=== PATIENT | male | born 1995 | race Caucasian/White ===

== ENCOUNTER 2021-07-01 03:49 | Emergency (ER) | payer SELFPAY ==
[2021-07-01 03:51] VITALS: BP 162/103; PULSE 96; RESP 16; TEMP 36.6; O2SAT 100; BMI 20.2
--- NOTE | 2021-07-01 04:12 | RAD_ITS ---
STUDY: X-RAY - SACRUM/COCCYX REASON FOR EXAM: Male, 26 years old. pain TECHNIQUE: 3 view(s) of the sacrum and coccyx were obtained. COMPARISON: None. FINDINGS: Normal bilateral sacroiliac joints. Normal visualized sacral ala and fused sacral bodies. Normal sacrococcygeal junction with a normal angulation. Normal coccygeal segments. The presacral soft tissue structures are unremarkable. RAD/Sacrum-Coccyx min 2 Views IMPRESSION: Normal x-rays of the sacrum and coccyx. Electronically Signed: Keshav Aden MD at 5:14 EDT , Service support ,
--- NOTE | 2021-07-01 04:31 | EDS_ITS ---
HPI History of Present Illness Chief Complaint: Other, Pain/Inj Narrative Narrative: 26-year-old male presenting with pain in his sacrum and coccyx after jumping out of a dumpster and falling backwards onto his buttocks and sacrum. He states he did hit his head and might of lost consciousness but states he is not dizzy, lightheaded, nauseous. He has trouble walking due to pain in his sacral area. He does not have any numbness or tingling below the area of pain. No lacerations or abrasions. PFSH PFSH Home Medications NK 07/01/21 [History Last Taken Unknown] Allergy/AdvReac Type Severity Reaction Status Date / Time mushroom AdvReac Hives Verified 07/01/21 03:50 Social History Smoking Status: Current every day smoker tobacco type: cigarettes and e- cigarettes ROS ROS ED Constitutional Constitutional ED: Denies chills, fever(s) or sweats Eyes Eyes: Denies blurry vision or other ENT ENT ED: Denies rhinorrhea or sore throat Cardiovascular Cardiovascular: Denies chest pain or palpitations Respiratory/Chest Respiratory/Chest: Denies cough, dyspnea or sputum Gastrointestinal Gastrointestinal: Denies abdominal pain, nausea or vomiting Genitourinary Genitourinary ED: Denies dysuria or hematuria Musculoskeletal Musculoskeletal: Reports other Details: Coccygeal pain Integumentary Denies abscess or rash Neurologic Neurologic: Denies headache(s) or paresthesias EXAM Physical Exam Const Vital Signs: 07/01/21 03:51 Temperature 98 F Temperature Source Temporal Pulse Rate 96 Respiratory Rate 16 Blood Pressure 162/103 H Blood Pressure Mean 122 Pulse Ox 100 Oxygen Delivery Method Room Air Positive well nourished General Appearance ED: NAD HEENT atraumatic Eyes PERRL and EOMs intact bilaterally Back/Spine Back/Spine Narrative: Pain at the level of the coccyx without obvious deformity or swelling. No erythema or cellulitic change. Neuro oriented x3, CN's II-XII intact bilaterally, moves all extremities, no focal motor deficits and no sensory deficits noted Sensorium / Orientation: alert Psych mental status grossly normal and thought process normal Skin no rashes or lesions noted and no wounds MDM MDM MDM Narrative Medical decision making narrative: Patient presenting with sacral pain after falling from a dumpster. He states he hit his head and may have been knocked out although he does not have any dizziness, lightheadedness, nausea, confusion. His gait is somewhat altered but this is due to the sacral pain. Patient states he does not want anything stronger he is is a previous heroin addict. Patient was given ibuprofen and a Lidoderm topical patch. I did to him imaging of the sacrum and coccyx and on my interpretation it shows no acute fracture or subluxation. Patient counseled on findings. He is counseled to alternate Tylenol and ibuprofen and use ice at home. He is counseled that this pain may linger for a while and they should expect this. If he has new or worsening symptoms he should return. Impression: 1. Closed head injury 2. Sacral contusion Radiography Diagnostic Testing: Radiology Impression Sacrum and Coccyx X-Ray 07/01/21 04:12 IMPRESSION: Normal x-rays of the sacrum and coccyx. Electronically Signed: Keshav Aden MD at 5:14 EDT , Service support , Discharge Plan Triage Chief Complaint: Other, Pain/Inj ED Provider: Lyel Varela Dx/Rx/DC Orders Instructions: ED Coccyx or Sacrum Contusion Prescriptions: No Action NK RF: 0 Primary Care Provider: Care Physician,No Primary Referrals: Isaías Noyola MD [STAFF PHYSICIAN] - Care Physician,No Primary [Primary Care Provider] - Disposition Disposition: Home, Self Care
[2021-07-01] MEDS: Lidocaine 5% Patch 1 PATCH TOPICAL (04:40)
[2021-07-01] MEDS: Ibuprofen 600 MG Tablet PO (04:40)
== END 2021-07-01 06:00 | disposition home or self-care (01) ==
PROVIDERS: Emergency Provider Student in an Organized Health Care Education/Training Program
DX: S09.90XA Unspecified injury of head, initial encounter (principal); S30.0XXA Contusion of lower back and pelvis, initial encounter; F17.210 Nicotine dependence, cigarettes, uncomplicated; X58.XXXA Exposure to other specified factors, initial encounter
CPT/HCPCS: 72220; 99283